=== PATIENT | male | born 1995 | race Caucasian/White ===

== ENCOUNTER 2019-06-03 17:50 | Emergency (ER) | payer SELFPAY ==
[~2019-06-03] VITALS: Ht 182.9 cm; Wt 80.5 kg
[2019-06-03] MEDS ORDERED: FLUORESCEIN OPHTHALMIC 1 MG STRIP ONE ×2 (18:01→18:04)
[2019-06-03] MEDS ORDERED: PROPARACAINE OPHTH 0.5%, 15ML ONE ×2 (18:01→18:04)
[2019-06-03] MEDS ORDERED: PROPARACAINE OPHTH 0.5%, 15ML EACHEYE ONE (18:30)
[2019-06-03] MEDS ORDERED: FLUORESCEIN OPHTHALMIC 1 MG STRIP EACHEYE ONE (18:30)
[2019-06-03 18:41] VITALS: BP 122/75
== END 2019-06-03 18:58 | disposition home or self-care (01) ==
LOC: ED 18:52
DX: T15.02XA Foreign body in cornea, left eye, initial encounter (principal); X58.XXXA Exposure to other specified factors, initial encounter; Y93.89 Activity, other specified; Y92.89 Other specified places as the place of occurrence of the external cause; Y99.8 Other external cause status; H57.12 Ocular pain, left eye
CPT/HCPCS: 65222; 99284